=== PATIENT | female | born 1980 | race Caucasian/White ===

== ENCOUNTER 2025-04-08 09:01 | Emergency (ER) | payer OTHER, SELFPAY ==
[2025-04-08 09:37] VITALS: BP 112/80; PULSE 81; RESP 18; TEMP 36.7; O2SAT 97; BMI 35.9
--- NOTE | 2025-04-08 09:57 | ED.GENADULT ---
HPI - General Adult General Date Seen: 04/08/25 Chief complaint: Abdominal Pain Stated complaint: Lower abdominal pain Time Seen by Provider: 04/08/25 09:57 History of Present Illness HPI narrative: 44-year-old female presenting to the ER this morning with concern about possible kidney stone, with lower abdominal pain. She has a history of a kidney stone about a year ago. Current symptoms began about a 1-2 weeks ago with some pulsing pain mostly in her right flank. This lasted for while but then got better and she has been doing well now for week or so. This morning she redeveloped a pulsing pain mostly in her lower abdomen. Along with this she feels like she needs to urinate but nothing comes Out. she is not having any fever. No nausea vomiting. Normal bowel. No dysuria, urgency, hematuria. Has cycles been normal. No known injury. She notes that after she arrived here into her ER room she went to the bathroom and urinated and passed a small kidney stone. She now feels better. Related Data Home Medications ?Medication ?Instructions ?Recorded ?Confirmed cholecalciferol (vitamin D3) 10 10 mcg PO QDAY 12/11/21 04/08/25 mcg (400 unit) capsule loratadine 10 mg tablet (Claritin) 10 mg PO QDAY 12/11/21 04/08/25 omeprazole 20 mg tablet,delayed 20 mg PO QDAY 12/11/21 04/08/25 release pseudoephedrine HCl 30 mg tablet 30 mg PO Q4-6H PRN 12/11/21 04/08/25 (Sudafed) bupropion HCl 150 mg 24 hr tablet, 150 mg PO DAILY 04/08/25 04/08/25 extended release montelukast 10 mg tablet 10 mg PO DAILY 04/08/25 04/08/25 omeprazole 40 mg capsule,delayed 40 mg PO DAILY 04/08/25 04/08/25 release Previous Rx's ?Medication ?Instructions ?Recorded escitalopram oxalate 20 mg tablet 20 mg PO QDAY #30 tabs 12/28/21 (Lexapro) Allergies Allergy/AdvReac Type Severity Reaction Status Date / Time clavulanic acid (From Allergy Severe Hives Verified 04/08/25 09:47 Augmentin) amoxicillin (From Augmentin) Allergy Unknown Hives Verified 04/08/25 09:47 cefaclor (From Ceclor) Allergy Unknown Hives Verified 04/08/25 09:47 dust mites Allergy Mild sneezing, Uncoded 04/08/25 09:47 scratchy throat [facility] Medical History (Updated 04/08/25 @ 12:20 by Shiva Lanier MD) History of vitamin D deficiency ?Z86.39 - Personal history of other endocrine, nutritional and metabolic disease (ICD-10) History of eustachian tube dysfunction ?Z86.69 - Personal history of other diseases of the nervous system and sense organs (ICD-10) Sore throat ?J02.9 - Acute pharyngitis, unspecified (ICD-10) Surgical History (Updated 04/29/22 @ 12:11 by Timi Murdock) Status post tonsillectomy and adenoidectomy ?Z90.89 - Acquired absence of other organs (ICD-10) History of third molar tooth extraction ?K08.409 - Partial loss of teeth, unspecified cause, unspecified class (ICD-10) Family History (Updated 04/29/22 @ 12:19 by Timi Murdock) Sister Breast cancer Depression Mother Breast cancer Aunt Breast cancer Diabetes Mother Depression Father Depression Diabetes Uncle Diabetes Family/Other Diabetes Maternal Grandfather Family history of heart attack Social History Smoking Status: Never smoker Non-prescribed substance use: denies use Exam Narrative: Exam Narrative: Constitutional: Appears well-developed and well-nourished. Alert. Conversant. Non toxic. HENT: Head: Atraumatic. Nose: Nose normal. Mouth/Throat: Oral mucosa is clear and moist. no trismus. Eyes: Conjunctivae normal. EOM normal. Pupils equal, round, and reactive to light. No scleral icterus. Neck: Normal range of motion. Neck supple. No tracheal deviation present. Cardiovascular: Normal rate, regular rhythm. No gallop. No friction rub. No murmur heard. Symmetric radial artery pulses Pulmonary/Chest: Effort normal. No stridor. No respiratory distress. No wheezes. No rales. No rhonchi . No tenderness. Abdominal: Soft. Bowel sounds normal. No distension. No mass. No tenderness. No rebound. No guarding. Musculoskeletal: RUE: Normal range of motion. No tenderness. No deformity LUE: Normal range of motion. No tenderness. No deformity RLE: Normal range of motion. No edema. No tenderness. No deformity LLE: Normal range of motion. No edema. No tenderness. No deformity Neurological: Alert and oriented to person, place, and time. Normal strength. CN II-VII intact. No sensory deficit. GCS eye subscore is 4. GCS verbal subscore is 5. GCS motor subscore is 6. Normal coordination Skin: Skin is warm and dry. No rash noted. No pallor. Normal capillary refill. Psychiatric: Normal mood. Normal affect. Const: Vital Signs, click to edit/add: Vital Signs - 24 hr 04/08/25 09:37 Temperature 98.1 F Pulse Rate [Pulse Oximeter] 81 Respiratory Rate 18 Blood Pressure [Ri t Upper Arm] 112/80 Pulse Oximetry 97 Oxygen Delivery Me thod Room Air Course Vital Signs Vital signs: Initial Vital Signs Temperature 98.1 F 04/08/25 09:37 Temperature Source Temporal Artery Scan 04/08/25 09:37 Pulse Rate 81 04/08/25 09:37 Respiratory Rate 18 04/08/25 09:37 Blood Pressure 112/80 04/08/25 09:37 Blood Pressure Mean 90 04/08/25 09:37 Blood Pressure Position Sitting 04/08/25 09:37 Pulse Oximetry 97 04/08/25 09:37 Oxygen Delivery Method Room Air 04/08/25 09:37 Vital Signs Temperature 98.1 F 04/08/25 09:37 Pulse Rate 81 04/08/25 09:37 Respiratory Rate 18 04/08/25 09:37 Blood Pressure 112/80 04/08/25 09:37 Pulse Oximetry 97 04/08/25 09:37 Oxygen Delivery Method Room Air 04/08/25 09:37 Temperature 98.1 F 04/08/25 09:37 Pulse Rate 81 04/08/25 09:37 Respiratory Rate 18 04/08/25 09:37 Blood Pressure 112/80 04/08/25 09:37 Pulse Oximetry 97 04/08/25 09:37 Oxygen Delivery Method Room Air 04/08/25 09:37 Medical Decision Making MDM Narrative Medical decision making narrative: This patient presents withLower abdominal pain that began this morning along with bladder spasm and a sensation of need to urinate in the setting of an episode of flank pain that happened a week Or 2 ago. Differential Diagnosis considered includes: Ureterolithiasis, UTI, pyelonephritis, AAA, colitis, diverticulitis,, appendicitis, aamong others. At this point, the evaluation indicates that ureterolithiasis is the cause of the patient's symptoms. she actually urinated and passed a visible small stone shortly after arrival here in the ER and is now feeling better. There are no signs that this is an infected stone. The patient's pain is Resolved in ED. The patient is hemodynamically stable in ED. we did obtain a CT scan because she was worried about her potential stone burden and whether not she had more stones yet to pass. I think the patient is safe for discharge. The plan is discharge to home with recheck by primary care physician or urology.They will return to the ED right away if symptoms worsen (e.g Return immediately for fevers greater than 102, increasing pain, other new symptoms develop). Ureterolithiasis precautions for home. The patient's questions were answered. Lab Data Labs: Lab Results 04/08/25 Range/Units 09:51 Urine Color Yellow (Yellow) Urine Appearance Clear (Clear) Urine pH 7.5 (5.0-8.5) Ur Specific [place] 1.015 (1.000-1.030) Urine Protein Negative (Negative) Urine Glucose (UA) Negative (Negative) Urine Ketones Negative (Negative) Urine Blood 2+ A (Negative) Urine Nitrite Negative (Negative) Urine Bilirubin Negative (Negative) Urine Urobilinogen 0.2 (0.2-1.0) Ur Leukocyte Esterase Negative (Negative) Urine RBC 5-10 A (0-2) Urine WBC 0-2 (0-5) Ur Squamous Epith Cells Few (None-Few) Urine Bacteria Few A (None) Discharge Plan Discharge Clinical Impression: Kidney stone Patient Disposition: Home, Self-Care Condition: Stable Instructions: Kidney Stones (ED) Additional Instructions: as we discussed, please come back to the ER right away if you have more symptoms such as flank pain, abdominal pain, bloody urine. Also come back to the ER right away if you develop other symptoms such as fever or chills, or uncontrolled nausea or vomiting. It looks like you passed the stone that was stuck in your ureter today. However your CT scan shows the you still have a couple of tiny stones in both of your kidneys and a stone that is approximately 4 mm in your right kidney. Prescriptions: No Action pseudoephedrine HCl [Sudafed] 30 mg tablet 30 mg PO Q4-6H PRN Rx Instructions: DNExceed 4 doses/24h loratadine [Claritin] 10 mg tablet 10 mg PO QDAY cholecalciferol (vitamin D3) 10 mcg (400 unit) capsule 10 mcg PO QDAY omeprazole 20 mg tablet,delayed release (DR/EC) 20 mg PO QDAY omeprazole 40 mg capsule,delayed release(DR/EC) 40 mg PO DAILY montelukast 10 mg tablet 10 mg PO DAILY bupropion HCl 150 mg tablet extended release 24 hr 150 mg PO DAILY escitalopram oxalate [Lexapro] 20 mg tablet 20 mg PO QDAY Qty: 30 1RF Rx Instructions: Please call the [facility] at [phone] to schedule your annual exam, no future refills are available. Follow Up/Referrals: Provider,Not a Local [Non-Staff, Family Practice] Stand Alone Forms: [facility] Info Instructions
[2025-04-08 10:01] LABS: Appearance Urine Clear (Clear)
--- NOTE | 2025-04-08 10:08 | CRLHL7_ITS ---
For Patients: As a result of the Century Cures Act, medical imaging exams and procedure reports are released immediately into your electronic medical record. You may view this report before your referring provider. If you have questions, please contact your health care provider. INDICATION: Right-sided flank pain TECHNIQUE: Axial images were obtained from the diaphragm to the pubic symphysis. Reformats were obtained in the coronal and sagittal plane. IV Contrast: None Oral Contrast: None COMPARISON: None. FINDINGS: Lower chest: Unremarkable. Liver: Unremarkable. Normal in size and attenuation. No masses. Gallbladder and bile ducts: Unremarkable. No stones or inflammation. No biliary dilatation. Spleen: Unremarkable. Normal in size without mass. Pancreas: Unremarkable. No mass or inflammation. Adrenal glands: Unremarkable. No nodules. Kidneys: Nephrolithiasis without evidence of hydronephrosis or ureteral stone. Vasculature: Unremarkable. GI tract: The stomach is unremarkable. No dilated loops of large or small intestine. Appendix unremarkable. Pelvis: Unremarkable. Bones: Bilateral spondylolysis L5. IMPRESSION: 1. Nephrolithiasis without evidence of ureteral stone or hydronephrosis. 2. No dilated loops of large or small intestine. 3. Incidental bilateral spondylolysis L5. Please note that all CT scans at this facility use dose modulation, iterative reconstruction, and/or weight-based dosing when appropriate to reduce radiation dose to as low as reasonably achievable. Dictated by David Vail MD @ 04/08/2025 10:54:32 AM (Electronically Signed)
== END 2025-04-08 12:25 | disposition home or self-care (01) ==
PROVIDERS: Emergency Provider Emergency Medicine; PCP Nurse Practitioner Family
DX: N20.0 Calculus of kidney (principal)
CPT/HCPCS: 74176; 81001; 81003; 87086; 99283; 99284